=== PATIENT | male | born 1965 | race Caucasian/White ===

== ENCOUNTER 2025-04-19 19:01 | Emergency (ER) | payer OTHER ==
[~2025-04-19] VITALS: Ht 187.9 cm; Wt 86.2 kg
[~2025-04-19 19:01] MED LIST: MOTRIN800 MG PO; NKHM; VICODIN 5/500 505 MG PO
[2025-04-19] MEDS ORDERED: HYDROCODONE-AC1 EAC1 PO (21:04)
[2025-04-19] MEDS ORDERED: Acetaminophen/Hydrocodone 5 MG/325 MG TABLET PO ONE (21:05)
== END 2025-04-19 21:38 | disposition home or self-care (01) ==
LOC: ED 19:01
DX: S22.31XA Fracture of one rib, right side, initial encounter for closed fracture (principal); Z88.0 Allergy status to penicillin; Z98.890 Other specified postprocedural states; V43.52XA Car driver injured in collision with other type car in traffic accident, initial encounter; Y93.I9 Activity, other involving external motion; Y92.488 Other paved roadways as the place of occurrence of the external cause; Y99.8 Other external cause status